=== PATIENT | female | born 1980 | race Caucasian/White ===

== ENCOUNTER 2017-01-21 16:07 | Inpatient (IN) ==
--- NOTE | 2017-01-21 16:35 | Emergency Department Note ---
Disposition Clinical Impression: Anemia Qualifiers: Anemia type: unspecified type Qualified Code(s): D64.9 - Anemia, unspecified Disposition: Admitted As Inpatient Condition: Good Forms: ED Satisfaction Letter General Adult HPI - General Chief complaint: ED Recheck/Abnormal Lab/Rx Stated complaint: needs blood transfusion Time Seen by Provider: 01/21/17 16:16 Source: patient Limitations: no limitations Nursing Notes Reviewed: Yes Vital Signs Reviewed: Yes - History of Present Illness HPI Narrative: Patient sent for evaluation after outpatient labs show hemoglobin of 3.8. Patient states that she has been having symptoms of fatigue and weakness and exertional dyspnea for months. Patient states she has had a 40 pound weight loss over the last 2 months. Patient went to follow up with her family practice provider and had outpatient tests ordered that showed low hemoglobin. Patient is not in any current distress. When she has exertional dyspnea she does have some chest pain that she describes as a pressure. Pain Scale: 0 - Related Data Home Medications Medication Instructions Recorded Confirmed Albuterol Sulfate [Proair Hfa] 2 puff IH Q4-6H PRN 02/10/16 01/21/17 Atorvastatin [Lipitor] 40 mg PO HS 12/27/16 01/21/17 Budesonide/Formoterol 160/4.5 2 puff IH BIDR 12/27/16 01/21/17 [Symbicort 160/4.5] DiphenhydraMINE [Benadryl] 25 mg PO Q4HR PRN 12/27/16 01/21/17 Lansoprazole [Prevacid] 30 mg PO DAILY 12/27/16 01/21/17 Tiotropium [Spiriva] 18 mcg IH 0700 12/27/16 01/21/17 Multivitamin with Iron 1 each PO DAILY 01/21/17 01/21/17 [Multivitamins with Iron] Venlafaxine HCl 100 mg DT BID 01/21/17 01/21/17 Previous Rx's Medication Instructions Recorded Cetirizine HCl [Zyrtec] 10 mg PO DAILY #14 tablet 10/05/16 Allergies Allergy/AdvReac Type Severity Reaction Status Date / Time No Known Allergies Allergy Verified 12/27/16 08:26 Review of Systems: CONSTITUTIONAL: Fatigue, weakness, weight loss No fever, chills, HEENT: Eyes: No visual changes. Ears, Nose, Throat: No hearing loss, difficulty talking or unable to swallow. SKIN: Pale No rash or itching. CARDIOVASCULAR: No chest pain, chest pressure or chest discomfort. No palpitations or edema. RESPIRATORY: No shortness of breath, cough or sputum. GASTROINTESTINAL: No anorexia, nausea, vomiting or diarrhea. No abdominal pain or blood. GENITOURINARY: No burning on urination or hematuria. NEUROLOGICAL:dizziness, near syncope, No headache, paralysis, ataxia, numbness or tingling in the extremities. No change in bowel or bladder control. MUSCULOSKELETAL: Weakness HEMATOLOGIC: No bleeding or bruising. LYMPHATICS: No enlarged lymphnodes. PSYCHIATRIC: No change to depression or anxiety. ENDOCRINOLOGIC: No reports of heat or cold intolerance, Polyuria ALLERGIES: No history of asthma, hives, eczema or rhinitis. Past Medical History - Past Medical History Medical history: Reports: asthma, COPD, GERD, hyperlipidemia Surgical history: Reports: hysterectomy, other Psychiatric history: Reports: anxiety, depression [employer] MANAGER history: Reports: bilateral tubal ligation - Social History Smoking Status: Current every day smoker Smokeless Tobacco Status: No Alcohol use: Reports: none Drug use: Reports: none Physical Exam General appearance: Pale, NAD, conversant Eyes: anicteric sclerae, pale conjunctivae; PERRL HENT: Atraumatic; oropharynx clear with moist mucous membranes and no mucosal ulcerations Neck: Normal inspection; Trachea midline; FROM, supple Lungs: CTA, with normal respiratory effort and no intercostal retractions CV: RRR, no MRGs Abdomen: Soft, non-tender; no rebound or gaurding Rectal exam with dark stool that is been sent for Hemoccult -presumed positive for upper GI bleed Extremities: No peripheral edema or extremity lymphadenopathy Skin: Pale;Normal temperature; no rash, ulcers or lesions Psych: Appropriate mood and affect Neuro: alert and oriented to person, place and time - General Limitations: no limitations General appearance: alert Course - Reevaluation(s) Reevaluation #1: 2 units of blood given. Hemoccult dark brown but negative for Hemoccult card. CT abdomen and pelvis negative for acute process. Patient will be admitted for further monitoring and workup. - Consultations Consultation #1: Discussed with the hospitalistGiancarlo. Patient accepted. Vital Signs Temperature 98.5 F 01/21/17 16:08 Pulse Rate 110 06/02/17 16:08 Respiratory Rate 18 01/21/17 16:08 Blood Pressure 150/82 01/21/17 16:08 O2 Sat by Pulse Oximetry 100 01/21/17 16:08 Temperature 99.0 F 01/21/17 18:33 Pulse Rate 83 01/21/17 18:33 Respiratory Rate 16 01/21/17 18:33 Blood Pressure 115/94 01/21/17 18:33 O2 Sat by Pulse Oximetry 100 01/21/17 17:31 Oxygen Delivery Oxygen Delivery Room Air Medical Decision Making - Lab Data Result diagrams: 01/21/17 16:25 01/21/17 16:25 Lab Results 01/21/17 01/21/17 01/21/17 Range/Units 16:25 16:25 16:25 WBC 5.8 (4.3-11.1) K/mcL RBC 2.64 L (3.82-4.97) M/mcL Hgb 4.0 L* (11.5-15.4) g/dL Hct 16.2 L (35.3-44.9) % MCV 61.4 L (83.0-100.0) fL MCH 15.2 L (28.0-33.3) pg MCHC 24.7 L (31.6-35.5) g/dL RDW 25.8 H (11.5-14.5) % Plt Count 360 (140-400) K/mcL MPV 9.5 (9.4-12.4) fL Immature Gran % 0.3 (0-4) % Seg Neutrophils % 59.8 % Lymphocytes % 31.4 % Monocytes % 6.9 % Eosinophils % 1.4 % Basophils % 0.2 % Neutrophils # 3.5 (1.6-8.9) K/mcL Lymphocytes # 1.8 (0.6-4.6) K/mcL Monocytes # 0.4 (0.0-1.3) K/mcL Eosinophils # 0.1 (0.0-0.6) K/mcL Basophils # 0.0 (0.0-0.2) K/mcL Hypochromasia Present A (Not Present) Anisocytosis 3+ A (Not Present) Microcytosis Present A (Not Present) PT (9.4-12.1) Seconds INR Sodium 138 (136-145) mEq/L Potassium 3.5 (3.5-4.5) mEq/L Chloride 108 (98-109) mEq/L Carbon Dioxide 23 (19-29) mEq/L BUN 10 (7-20) mg/dL Creatinine 0.77 (0.57-1.11) mg/dL Est GFR ( Amer) > 60 (> 60) Est GFR (Non-Af Amer) > 60 (> 60) BUN/Creatinine Ratio 13 (6-26) Glucose 100 H (70-99) mg/dL Calculated Osmolality 285 (280-300) Calcium 9.2 (8.6-10.8) mg/dL Phosphorus 2.4 (2.3-4.7) mg/dL Magnesium 2.1 (1.6-2.6) mg/dL Total Bilirubin 0.6 (0.2-1.2) mg/dL AST 10 (5-34) Units/L ALT < 6 (0-55) Units/L Alkaline Phosphatase 125 (38-126) Units/L Troponin I 0.01 (0-0.03) ng/mL Serum Total Protein 7.1 (6.0-8.3) g/dL Albumin 3.7 (3.5-5.0) g/dL Globulin 3.4 (2.4-3.5) g/dL Albumin/Globulin Ratio 1.1 (1.1-2.2) Urine Color (Yellow) Urine Clarity (Clear) Urine pH (5.0-8.0) pH Units Ur Specific [place] (1.010-1.025) Urine Protein (Neg-Trace) mg/dL Urine Glucose (UA) (Normal) mg/dL Urine Ketones (Negative) mg/dL Urine Blood (Negative) Urine Nitrite (Negative) Urine Bilirubin (Negative) Urine Urobilinogen (Normal) mg/dL Ur Leukocyte Esterase (Negative) Urine Microscopic RBC (0-3) per hpf Urine Microscopic WBC (0-3) per hpf Ur Squamous Epith Cells (None-Few) per lpf Urine Bacteria (None-Few) per hpf Hyaline Casts (None-Few) per lpf Ur Culture Indicated? (NO) Stool Occult Blood (Negative) Blood Type Antibody Screen Crossmatch 01/21/17 01/21/17 01/21/17 Range/Units 16:25 16:25 16:25 WBC (4.3-11.1) K/mcL RBC (3.82-4.97) M/mcL Hgb (11.5-15.4) g/dL Hct (35.3-44.9) % MCV (83.0-100.0) fL MCH (28.0-33.3) pg MCHC (31.6-35.5) g/dL RDW (11.5-14.5) % Plt Count (140-400) K/mcL MPV (9.4-12.4) fL Immature Gran % (0-4) % Seg Neutrophils % % Lymphocytes % % Monocytes % % Eosinophils % % Basophils % % Neutrophils # (1.6-8.9) K/mcL Lymphocytes # (0.6-4.6) K/mcL Monocytes # (0.0-1.3) K/mcL Eosinophils # (0.0-0.6) K/mcL Basophils # (0.0-0.2) K/mcL Hypochromasia (Not Present) Anisocytosis (Not Present) Microcytosis (Not Present) PT 12.5 H (9.4-12.1) Seconds INR 1.2 Sodium (136-145) mEq/L Potassium (3.5-4.5) mEq/L Chloride (98-109) mEq/L Carbon Dioxide (19-29) mEq/L BUN (7-20) mg/dL Creatinine (0.57-1.11) mg/dL Est GFR ( Amer) (> 60) Est GFR (Non-Af Amer) (> 60) BUN/Creatinine Ratio (6-26) Glucose (70-99) mg/dL Calculated Osmolality (280-300) Calcium (8.6-10.8) mg/dL Phosphorus (2.3-4.7) mg/dL Magnesium (1.6-2.6) mg/dL Total Bilirubin (0.2-1.2) mg/dL AST (5-34) Units/L ALT (0-55) Units/L Alkaline Phosphatase (38-126) Units/L Troponin I (0-0.03) ng/mL Serum Total Protein (6.0-8.3) g/dL Albumin (3.5-5.0) g/dL Globulin (2.4-3.5) g/dL Albumin/Globulin Ratio (1.1-2.2) Urine Color (Yellow) Urine Clarity (Clear) Urine pH (5.0-8.0) pH Units Ur Specific [place] (1.010-1.025) Urine Protein (Neg-Trace) mg/dL Urine Glucose (UA) (Normal) mg/dL Urine Ketones (Negative) mg/dL Urine Blood (Negative) Urine Nitrite (Negative) Urine Bilirubin (Negative) Urine Urobilinogen (Normal) mg/dL Ur Leukocyte Esterase (Negative) Urine Microscopic RBC (0-3) per hpf Urine Microscopic WBC (0-3) per hpf Ur Squamous Epith Cells (None-Few) per lpf Urine Bacteria (None-Few) per hpf Hyaline Casts (None-Few) per lpf Ur Culture Indicated? (NO) Stool Occult Blood Negative (Negative) Blood Type A NEGATIVE Antibody Screen NEGATIVE Crossmatch See Detail 01/21/17 Range/Units 17:23 WBC (4.3-11.1) K/mcL RBC (3.82-4.97) M/mcL Hgb (11.5-15.4) g/dL Hct (35.3-44.9) % MCV (83.0-100.0) fL MCH (28.0-33.3) pg MCHC (31.6-35.5) g/dL RDW (11.5-14.5) % Plt Count (140-400) K/mcL MPV (9.4-12.4) fL Immature Gran % (0-4) % Seg Neutrophils % % Lymphocytes % % Monocytes % % Eosinophils % % Basophils % % Neutrophils # (1.6-8.9) K/mcL Lymphocytes # (0.6-4.6) K/mcL Monocytes # (0.0-1.3) K/mcL Eosinophils # (0.0-0.6) K/mcL Basophils # (0.0-0.2) K/mcL Hypochromasia (Not Present) Anisocytosis (Not Present) Microcytosis (Not Present) PT (9.4-12.1) Seconds INR Sodium (136-145) mEq/L Potassium (3.5-4.5) mEq/L Chloride (98-109) mEq/L Carbon Dioxide (19-29) mEq/L BUN (7-20) mg/dL Creatinine (0.57-1.11) mg/dL Est GFR ( Amer) (> 60) Est GFR (Non-Af Amer) (> 60) BUN/Creatinine Ratio (6-26) Glucose (70-99) mg/dL Calculated Osmolality (280-300) Calcium (8.6-10.8) mg/dL Phosphorus (2.3-4.7) mg/dL Magnesium (1.6-2.6) mg/dL Total Bilirubin (0.2-1.2) mg/dL AST (5-34) Units/L ALT (0-55) Units/L Alkaline Phosphatase (38-126) Units/L Troponin I (0-0.03) ng/mL Serum Total Protein (6.0-8.3) g/dL Albumin (3.5-5.0) g/dL Globulin (2.4-3.5) g/dL Albumin/Globulin Ratio (1.1-2.2) Urine Color Yellow (Yellow) Urine Clarity Cloudy A (Clear) Urine pH 6.0 (5.0-8.0) pH Units Ur Specific [place] 1.020 (1.010-1.025) Urine Protein Negative (Neg-Trace) mg/dL Urine Glucose (UA) Normal (Normal) mg/dL Urine Ketones Negative (Negative) mg/dL Urine Blood Negative (Negative) Urine Nitrite Negative (Negative) Urine Bilirubin Negative (Negative) Urine Urobilinogen Normal (Normal) mg/dL Ur Leukocyte Esterase Negative (Negative) Urine Microscopic RBC 0-3 (0-3) per hpf Urine Microscopic WBC 3-5 H (0-3) per hpf Ur Squamous Epith Cells Many H (None-Few) per lpf Urine Bacteria Few (None-Few) per hpf Hyaline Casts None Seen (None-Few) per lpf Ur Culture Indicated? NO (NO) Stool Occult Blood (Negative) Blood Type Antibody Screen Crossmatch Attestation Statement - Attestation Attestation: I examined this patient and my medical decision-making was reviewed with the [employer] CONSULTANT/PA/Advanced Practice Nurse/Resident Physician. I agree with the documented findings, disposition and treatment plan as described except to the extent set forth below. Patient to ED with a low hemoglobin. Patient's been feeling weak and for primary care provider. He ordered outpatient labs showed a hemoglobin of 3. Sent for eval. Denies blood in her stool. She does have some lower abdominal tenderness. On exam shows awake and alert. Pale conjunctiva. Abdomen soft with some lower abdominal tenderness without guarding. Lungs clear. Plan. Type and cross. CT abdomen and pelvis. Admit. 35 minutes of critical care exclusive of separately billable procedures.
[2017-01-21] MEDS ORDERED: Pantoprazole 80 MG in 0.9 % Sodium Chloride 50 ML IVPB ONE (16:37)
[2017-01-21 16:42] LABS: Basophils % 0.2 %; Eosinophils # 0.1 K/mcL (0.0-0.6); Eosinophils % 1.4 %; Hematocrit 16.2 % (35.3-44.9); Immature Granulocytes % 0.3 % (0-4); Lymphocytes # 1.8 K/mcL (0.6-4.6); Lymphocytes % 31.4 %; Mean Corpuscular HGB Conc 24.7 g/dL (31.6-35.5); Mean Corpuscular Hemoglobin 15.2 pg (28.0-33.3); Mean Corpuscular Volume 61.4 fL (83.0-100.0); Mean Platelet Volume 9.5 fL (9.4-12.4); Monocytes # 0.4 K/mcL (0.0-1.3); Monocytes % 6.9 %; Neutrophils # 3.5 K/mcL (1.6-8.9); Platelet Count 360 K/mcL (140-400); Red Blood Count 2.64 M/mcL (3.82-4.97); Red Cell Distribution Width 25.8 % (11.5-14.5); Segmented Neutrophils % 59.8 %
[2017-01-21 16:56] LABS: INR 1.2; Prothrombin Time 12.5 Seconds (9.4-12.1)
[2017-01-21 16:58] LABS: Alanine Aminotransferase < 6 Units/L (0-55); Albumin 3.7 g/dL (3.5-5.0); Albumin/Globulin Ratio 1.1 (1.1-2.2); Alkaline Phosphatase 125 Units/L (38-126); Aspartate Amino Transferase 10 Units/L (5-34); BUN/Creatinine Ratio 13 (6-26); Bilirubin,Total 0.6 mg/dL (0.2-1.2); Blood Urea Nitrogen 10 mg/dL (7-20); Calcium 9.2 mg/dL (8.6-10.8); Carbon Dioxide 23 mEq/L (19-29); Chloride 108 mEq/L (98-109); Globulin 3.4 g/dL (2.4-3.5); Glucose 100 mg/dL (70-99); Magnesium 2.1 mg/dL (1.6-2.6); Osmolality,Calculated 285 (280-300); Phosphorous 2.4 mg/dL (2.3-4.7); Potassium 3.5 mEq/L (3.5-4.5); Sodium 138 mEq/L (136-145); Total Protein 7.1 g/dL (6.0-8.3); eGFR For African Americans > 60 (> 60); eGFR For Non-African Americans > 60 (> 60)
[2017-01-21 17:09] LABS: Anisocytosis 3+ (Not Present); Hypochromasia Present (Not Present); Microcytosis Present (Not Present)
[2017-01-21 17:45] LABS: Bilirubin,Urine Negative (Negative); Blood,Urine Negative (Negative); Clarity,Urine Cloudy (Clear); Color,Urine Yellow (Yellow); Glucose,Urine (UA) Normal (Normal); Ketones,Urine Negative (Negative); Leukocyte Esterase,Urine Negative (Negative); Nitrite,Urine Negative (Negative); Protein,Urine Negative (Neg-Trace); Urobilinogen,Urine Normal (Normal)
[2017-01-21 17:48] LABS: Bacteria,Urine Few per hpf (None-Few); Hyaline Casts,Urine None Seen per lpf (None-Few); RBC,Urine 0-3 per hpf (0-3); Squamous Epithelial Cell,Urine Many per lpf (None-Few)
[2017-01-21] MEDS ORDERED: 0.9 % Sodium Chloride 500 ML ONE (17:57)
[2017-01-21] MEDS ORDERED: Naloxone 0.4 MG/ML INJ IVP PRN (20:09)
[2017-01-21] MEDS ORDERED: Acetaminophen 325 MG TABLET PO PRN (20:09)
[2017-01-21] MEDS ORDERED: Ondansetron 4 MG/2 ML VIAL IVP PRN (20:09)
--- NOTE | 2017-01-21 20:22 | Internal Med History&Physical ---
Date of Encounter: 01/21/17 Time of Encounter: 20:18 Assessment and Plan (1) Anemia Current visit: Yes Status: Acute Patient presents with symptomatic anemia with hemoglobin of 4.0. Microcytic. No evidence of active bleeding, fecal occult negative. Patient is on iron supplementation. Check iron panel, B12, folate, haptoglobin, LDH, reticulocyte count. If initial testing does not reveal a cause for the patient's anemia she may need further workup for other causes of anemia including occult GI bleed, thalassemia. We will consult the appropriate specialist based on the results of initial workup. Qualifiers: Anemia type: unspecified type Qualified Code(s): D64.9 - Anemia, unspecified (2) Asthma with COPD Current visit: Yes Status: Acute Stable this time. No evidence of exacerbation. She does have some mild wheezing on exam. Continue aerosol treatments. (3) Depression Current visit: Yes Status: Acute Stable. Continue home medications. Qualifiers: Depression Type: major depressive disorder Major depression recurrence: single episode Active/Remission status: remission status unspecified Qualified Code(s): F32.9 - Major depressive disorder, single episode, unspecified (4) DVT prophylaxis Current visit: Yes Status: Acute EPCDs Internal Medicine - H&P: HPI Chief complaint: Weakness/Fatigue Admitted From: Emergency Dept Plans for Post Hospital Care: Home History of present illness: Ms. Cuadra is a 36 year old female with history of asthma/COPD and depression presents with weakness. Patient states that she has felt tired and weak over the last several months, and this gradually worsened. She also reports pressure in the center of her chest that is worse with exertion. Patient saw her primary care physician today for this and lab work was performed which revealed a hemoglobin of 3.9. Patient says she has never had anything like this before. Patient reports occasional dark stools that have been present since she started a multivitamin with iron supplementation. She denies any bleeding source including epistaxis, hemoptysis, hematemesis, hematochezia, hematuria. Patient reports hysterectomy 12 years ago and no longer has menstrual bleeding. She denies any trauma. She reports chills but denies fever. She denies any abdominal pain, nausea, vomiting, diarrhea, dysuria. Patient denies any family history of anemia. Patient reports that she has been told she has been anemic in the past and was started on iron at that time. Past Med Surg Social Fam HX - Past Medical History Medical history: asthma, COPD, GERD, hyperlipidemia Psychiatric history: anxiety, depression - Past Surgical History Surgical History: hysterectomy, other - Social History Smoking Status: Current every day smoker Smokeless Tobacco Status: No Alcohol use: none Drug use: none - Additional Family History Additional family history: Reports mother had an [place] in her 60s. Denies any family history of anemia. Internal Medicine - H&P: Meds Albuterol Sulfate [Proair Hfa] 2 puff IH Q4-6H PRN 02/10/16 [History] Cetirizine HCl [Zyrtec] 10 mg PO DAILY #14 tablet 10/05/16 [Rx] Atorvastatin [Lipitor] 40 mg PO HS 12/27/16 [History] Budesonide/Formoterol 160/4.5 [Symbicort 160/4.5] 2 puff IH BIDR 12/27/16 [ History] DiphenhydraMINE [Benadryl] 25 mg PO Q4HR PRN 12/27/16 [History] Lansoprazole [Prevacid] 30 mg PO DAILY 12/27/16 [History] Tiotropium [Spiriva] 18 mcg IH 0700 12/27/16 [History] Multivitamin with Iron [Multivitamins with Iron] 1 each PO DAILY 01/21/17 [ History] Venlafaxine HCl 100 mg DT BID 01/21/17 [History] Allergies No Known Allergies Allergy (Verified 12/27/16 08:26) All Systems PM: A 10-system review of systems was performed and is negative for pertinent findings except as documented above in the HPI. - Constitutional Constitutional: chills, lethargy, malaise, no fever(s) - EENT Eyes: no blurry vision, no change in vision Nose, mouth and throat: no bleeding gums, no epistaxis, no sinus pain, no sinus pressure, no sore throat - Cardiovascular Cardiovascular ROS IM: chest pain, dyspnea, lightheadedness, no irregular heart rhythm, no palpitations, no syncope - Respiratory Respiratory: no hemoptysis, no chest congestion, no excessive phlegm production , no change in phlegm color - Gastrointestinal Gastrointestinal: no abdominal pain, no change in bowel habits, no change in stool character, no diarrhea, no hematemesis, no hematochezia, no nausea, no vomiting - Genitourinary Genitourinary: no dysuria, no hematuria Menstruation: amenorrhea, post hysterectomy - Musculoskeletal Musculoskeletal ROS IM: no numbness, no tingling - Integumentary Integumentary IM: no erythema, no unusual bruising, no jaundice - Neurological Neurological ROS: dizziness, no confusion, no focal weakness, no frequent falls , no headache(s), no numbness, no tingling - Psychiatric Psychiatric: no anxiety, no depression - Endocrine Endocrine IM: no polydipsia, no polyuria - Hematologic/Lymphatic Hematologic/Lymphatic: no easy bleeding, no easy bruising - Allergic/Immunologic Allergic/Immunologic: no tongue swelling, no throat swelling - Constitutional Vitals: Temp Pulse Resp BP Pulse Ox 98.4 F 84 16 146/77 99 01/21/17 20:16 01/21/17 20:16 01/21/17 20:16 01/21/17 20:16 01/21/17 20:16 General appearance: Present: A&O X 3, pleasant, no acute distress Exam: Patient was sitting up in bed when I entered the room. - Head Head exam: Present: atraumatic, normal inspection, normocephalic - Eye Eye exam: Present: EOMI, PERRL Additional comments: Conjunctival pallor - ENT ENT exam: Present: mucous membranes moist - Neck Neck exam general surgery: Present: full ROM. Absent: tenderness - Respiratory Respiratory exam: Present: CTAB. Absent: rales, rhonchi, wheezes - Cardiovascular Cardiovascular exam: Present: RRR. Absent: gallop, rubs, systolic murmur - GI/Abdominal GI/Abdominal exam: Present: normal bowel sounds, soft. Absent: distended, tenderness - Extremities Exam Extremities exam: Present: warm. Absent: pedal edema, tenderness - Neurological Exam Neurological exam: Present: alert, CN II-XII intact, oriented X3, no focal deficits - Psychiatric Psychiatric exam: Present: normal affect, normal mood - Skin Skin exam: Present: dry, intact, pallor, warm. Absent: erythema, petechiae, rash Internal Med - H&P Results - Labs CBC & Chem 7: 01/21/17 16:25 01/21/17 16:25
[2017-01-21 20:42] LABS: Immature Reticulocyte % 42.8 % (11.0-38.0); Retculocyte # 0.02 M/mcL (0.05-0.10); Reticulocyte % 0.8 % (1.6-2.8)
[2017-01-21 21:13] LABS: % Iron Saturation 7 % (15-50); Iron 26 mcg/dL (50-170); Lactate Dehydrogenase 146 Units/L (159-327); Transferrin 284 mg/dL (180-382)
[2017-01-21 21:38] LABS: Ferritin 2 ng/ml (5-204)
[2017-01-21] MEDS ORDERED: 0.9 % Sodium Chloride Mini Bag 100 ML ONE (21:52)
[2017-01-21 21:58] LABS: Folate 11.4 ng/mL (7.0-31.4)
[2017-01-21] MEDS: Budesonide/Formoterol 160/4.5 MDI IH SCH (23:38)
[2017-01-22 06:19] LABS: Basophils % 0.1 %; Mean Corpuscular Hemoglobin 19.4 pg (28.0-33.3)
[2017-01-22 06:21] LABS: Eosinophils # 0.1 K/mcL (0.0-0.6); Eosinophils % 0.8 %; Hematocrit 22.3 % (35.3-44.9); Hemoglobin 6.3 g/dL (11.5-15.4); Immature Granulocytes % 0.4 % (0-4); Lymphocytes # 1.6 K/mcL (0.6-4.6); Lymphocytes % 20.4 %; Mean Corpuscular HGB Conc 28.3 g/dL (31.6-35.5); Mean Corpuscular Volume 68.6 fL (83.0-100.0); Mean Platelet Volume 9.8 fL (9.4-12.4); Monocytes # 0.5 K/mcL (0.0-1.3); Monocytes % 6.4 %; Neutrophils # 5.6 K/mcL (1.6-8.9); Nucleated Red Blood Cells 0.4 /100 WBC (0); Platelet Count 307 K/mcL (140-400); Red Blood Count 3.25 M/mcL (3.82-4.97); Red Cell Distribution Width 29.7 % (11.5-14.5); Segmented Neutrophils % 71.9 %
[2017-01-22 06:31] LABS: INR 1.1
[2017-01-22 06:34] LABS: Activated Partial Thrombo Time 27.5 Seconds (26.0-36.0); Albumin 3.4 g/dL (3.5-5.0); Albumin/Globulin Ratio 1.2 (1.1-2.2); Alkaline Phosphatase 106 Units/L (38-126); Aspartate Amino Transferase 10 Units/L (5-34); BUN/Creatinine Ratio 14 (6-26); Blood Urea Nitrogen 10 mg/dL (7-20); Calcium 8.6 mg/dL (8.6-10.8); Carbon Dioxide 22 mEq/L (19-29); Chloride 111 mEq/L (98-109); Globulin 2.8 g/dL (2.4-3.5); Glucose 92 mg/dL (70-99); Osmolality,Calculated 287 (280-300); Phosphorous 2.8 mg/dL (2.3-4.7); Potassium 3.9 mEq/L (3.5-4.5); Sodium 139 mEq/L (136-145); Total Protein 6.2 g/dL (6.0-8.3); eGFR For African Americans > 60 (> 60); eGFR For Non-African Americans > 60 (> 60)
[2017-01-22 06:37] LABS: Alanine Aminotransferase < 6 Units/L (0-55); Bilirubin,Total 1.6 mg/dL (0.2-1.2)
[2017-01-22 06:56] LABS: Thyroid Stimulating Hormone 2.656 mcIU/mL (0.350-4.840)
[2017-01-22] MEDS: Budesonide/Formoterol 160/4.5 MDI IH SCH ×2 (08:14→19:55)
[2017-01-22] MEDS: Tiotropium 18 MCG inhalation IH SCH (08:15)
[2017-01-22 08:34] LABS: Anisocytosis 1+ (Not Present); Hypochromasia Present (Not Present); Platelet Estimate Normal (Normal)
[2017-01-22 08:38] LABS: Microcytosis Present (Not Present)
[2017-01-22 08:39] LABS: Poikilocytosis 1+ (Not Present)
[2017-01-22 08:41] LABS: Large Platelets Present (Not Present)
[2017-01-22] MEDS ORDERED: LANSOPRAZOLE 30 MG PO SCH (09:00)
[2017-01-22] MEDS ORDERED: Furosemide 20 MG/2 ML VIAL IVP ONE ×2 (11:13→20:45)
--- NOTE | 2017-01-22 11:36 | Internal Med Progress Note ---
Date of Encounter: 01/22/17 Time of Encounter: 11:31 - Assessment and plan (1) Anemia Current Visit: Yes Status: Acute Assessment and plan: Microcytic anemia of uncertain etiology, could be a problem with red cell production/abnormal Hb chains. Iron profile shows low iron stores, continue ferrous sulfate supplementation. Serum vitamin B12 and folic acid within normal limits. Low reticulocyte count. No evidence of overt or occult bleeding. Recent EGD showed no evidence of bleed. Stool occult blood 1 negative, we will send another sample. Hematology consult. Received 2 units PRBC with improvement in hemoglobin to 6.3. We will transfuse 2 more units of PRBC along with 1 FFP. Qualifiers: Anemia type: unspecified type Qualified Code(s): D64.9 - Anemia, unspecified (2) Asthma with COPD Current Visit: Yes Status: Chronic Assessment and plan: Not noted to be in acute exacerbation. Continue when necessary bronchodilators and supplemental oxygen, inhaled corticosteroids. (3) Depression Current Visit: Yes Status: Chronic Qualifiers: Depression Type: unspecified Qualified Code(s): F32.9 - Major depressive disorder, single episode, unspecified (4) Tobacco abuse Current Visit: Yes Status: Chronic Assessment and plan: Smoking cessation counseling given, patient claims she has been trying to cut down. Nicotine transdermal patch as inpatient. - Subjective Interval history: Reports feeling much better. Improved chest pain, shortness of breath. No nausea , vomiting, abdominal pain. - Constitutional Vitals: Temp Pulse Resp BP Pulse Ox 98.7 F 89 18 148/78 98 01/22/17 10:34 01/22/17 10:34 01/22/17 10:34 01/22/17 10:34 01/22/17 10:34 General appearance: Present: A&O X 3, answers questions appropriately - Respiratory Respiratory exam: Present: CTAB. Absent: accessory muscle use, rales, rhonchi, wheezes - Cardiovascular Cardiovascular exam: Present: RRR, +S1, +S2. Absent: diastolic murmur, gallop, rubs, systolic murmur - GI/Abdominal GI/Abdominal exam: Present: normal bowel sounds, soft, no peritoneal signs. Absent: distended, tenderness - Extremities Exam Extremities exam: Present: full ROM, warm, radial pulses palpable and symetrical. Absent: calf tenderness, cyanotic, pedal edema Internal Medicine: Result - Labs CBC & Chem 7: 01/22/17 05:17 01/22/17 05:17 Labs: Short CBC 01/22/17 Range/Units 05:17 WBC 7.8 (4.3-11.1) K/mcL Hgb 6.3 L D (11.5-15.4) g/dL Hct 22.3 L (35.3-44.9) % Plt Count 307 (140-400) K/mcL Neutrophils # 5.6 (1.6-8.9) K/mcL BMP 01/22/17 05:17 Sodium 139 Potassium 3.9 Chloride 111 H Carbon Dioxide 22 BUN 10 Creatinine 0.73 Glucose 92 Calcium 8.6 Liver Function 01/22/17 Range/Units 05:17 Total Bilirubin 1.6 H D (0.2-1.2) mg/dL AST 10 (5-34) Units/L ALT < 6 (0-55) Units/L Alkaline Phosphatase 106 (38-126) Units/L Albumin 3.4 L (3.5-5.0) g/dL - ABG Interpretation ABG results: PT/INR, D-dimer PT 12.0 Seconds (9.4-12.1) 01/22/17 05:17 Consult Discharge Plan - Plan Referrals: Thomas Ballard DO [Primary Care Provider] -
[2017-01-22] MEDS ORDERED: 0.9 % Sodium Chloride Mini Bag 100 ML ONE ×2 (13:10→16:13)
--- NOTE | 2017-01-22 16:03 | Oncology Inp Consult Note ---
Date of Encounter: 01/22/17 Time of Encounter: 16:00 - Data of Consult Patient: new to practice Consult date: 01/22/17 Requesting Physician: Irene Lee MD Primary Care Provider: Thomas Ballard DO - Consult Narrative Reason for consult: Microcytic anemia History of present illness: Ms. Cuadra is a 36 year old female patient of Dr. Thomas Ballard hospitalized for symptomatic anemia like due to iron deficiency. She was found to have Hb 3.9 during evaluation of progressive fatigue,BASURTO and palpitation. Lab work is consistent with iron deficiency. She has no had any bleeding symptoms and UA negative for hematuria. She is s/p hysterectomy for benign indication and has no had any recent vaginal bleeding. EGD 12/27/[address] Fernandez showed benign appearing esophageal stenosis and large hiatal hernia. No recent colonoscopy. Since admission, she has received 3 untis PRBC and 1 unit FFP at time of eval. and is feeling much better. Not having any other physical complaints. CBC from a year ago was completely normal. She does not have ay significant personal or family Hx of hematology disoreder or malignancy No previous bowel surgeries. She is not any medications that can explain her abnormal CBC. She does not have any other risk factor her anemia and does not use alcohol, tobacco or recreational drugs. Dr. Lee was kind enough to discuss patient'd case with me regarding consult question. I reviewed her records for details of her ongoing care by the hospital team. She is a non smoker and does not use alcohol. Anemia work-up confirmed iron deficiency. B12 is in low normal range. folate normal. Abdomen/pelvis CT showed large hiatal hernia. Unremarkable otherwise. Rest of past medical, surgical, family, social history detailed below and verified with patient today. Review of systems: 12 point review of systems performed with patient and positive findings noted in history of present illness. All other systems are negative: Physical exam: Vital Signs Temp 98.5 F 01/22/17 13:23 Pulse 77 01/22/17 13:23 Resp 18 01/22/17 13:23 BP 113/72 01/22/17 13:23 Pulse Ox 95 01/22/17 13:23 Intake & Output 01/22/17 01/22/17 01/23/17 00:59 12:59 00:59 Intake Total 1200 / 1200 390 / 390 0 / 0 Output Total 150 / 150 1500 / 1500 Balance 1050 / 1050 -1110 / -1110 0 / 0 Weight 87.26 kg 86.954 kg Intake: IV Fluids 50 / 50 Protonix 80 MG In 0.9 % 50 / 50 Sodium Chloride 50 ML @ 600 mls/hr IVPB ONCE ONE Rx#:[id number] Oral 100 / 100 390 / 390 Blood Product 1050 / 1050 0 / 0 Plasma Unit 0 / 0 [id number] Rbcs Leuko Poor As-1 700 / 700 Unit [id number] Rbcs Leuko Poor As-3 2nd 350 / 350 Unit [id number] Output: Urine 150 / 150 1500 / 1500 Other: Meal Breakfast Percent of Meal Consumed 100% # Voids 1 1 # Bowel Movements 0 GENERAL: Alert and oriented, [default value] appearing. Mental Status: Affect appropriate for circumstances HEENT: Sclerae anicteric. No mucositis or thrush. No other oral or pharyngeal lesions or erythema. Skin: No rashes or petechiae. No evidence of skin malignancy Lymph nodes: No cervical, supraclavicular, axillary, or inguinal adenopathy. Lungs: Clear to auscultation bilaterally. Clear to percussion bilaterally. Cardiovascular: Regular rate and rhythm. No gallops, murmurs, or rubs. Abdomen: Soft, nontender; No organomegaly or masses palpable. Extremities: No edema. No calf swelling or tenderness. No joint deformity. Neurologic: Alert, normal gait; no focal weakness or sensory abnormalities. Results: Laboratory Last Values WBC 7.8 K/mcL (4.3-11.1) 01/22/17 05:17 RBC 3.25 M/mcL (3.82-4.97) L 01/22/17 05:17 Hgb 6.3 g/dL (11.5-15.4) L D 01/22/17 05:17 Hct 22.3 % (35.3-44.9) L 01/22/17 05:17 MCV 68.6 fL (83.0-100.0) L D 01/22/17 05:17 MCH 19.4 pg (28.0-33.3) L 01/22/17 05:17 MCHC 28.3 g/dL (31.6-35.5) L 01/22/17 05:17 RDW 29.7 % (11.5-14.5) H 01/22/17 05:17 Plt Count 307 K/mcL (140-400) 01/22/17 05:17 MPV 9.8 fL (9.4-12.4) 01/22/17 05:17 Reticulocyte # 0.02 M/mcL (0.05-0.10) L 01/21/17 20:26 Immature Gran % 0.4 % (0-4) 01/22/17 05:17 Seg Neutrophils % 71.9 % 01/22/17 05:17 Lymphocytes % 20.4 % 01/22/17 05:17 Monocytes % 6.4 % 01/22/17 05:17 Eosinophils % 0.8 % 01/22/17 05:17 Basophils % 0.1 % 01/22/17 05:17 Neutrophils # 5.6 K/mcL (1.6-8.9) 01/22/17 05:17 Lymphocytes # 1.6 K/mcL (0.6-4.6) 01/22/17 05:17 Monocytes # 0.5 K/mcL (0.0-1.3) 01/22/17 05:17 Eosinophils # 0.1 K/mcL (0.0-0.6) 01/22/17 05:17 Basophils # 0.0 K/mcL (0.0-0.2) 01/22/17 05:17 Nucleated RBCs/100 WBC 0.4 /100 WBC (0) H 01/22/17 05:17 Platelet Estimate Normal (Normal) 01/22/17 05:17 Large Platelets Present (Not Present) A 01/22/17 05:17 Hypochromasia Present (Not Present) A 01/22/17 05:17 Poikilocytosis 1+ (Not Present) A 01/22/17 05:17 Anisocytosis 1+ (Not Present) A 01/22/17 05:17 Microcytosis Present (Not Present) A 01/22/17 05:17 Percent Retic 0.8 % (1.6-2.8) L 01/21/17 20:26 Immature Retic Fraction 42.8 % (11.0-38.0) H 01/21/17 20:26 Retic Hgb Equivalent 15.5 pg (28.61-36.33) L 01/21/17 20:26 PT 12.0 Seconds (9.4-12.1) 01/22/17 05:17 INR 1.1 01/22/17 05:17 APTT 27.5 Seconds (26.0-36.0) 01/22/17 05:17 Sodium 139 mEq/L (136-145) 01/22/17 05:17 Potassium 3.9 mEq/L (3.5-4.5) 01/22/17 05:17 Chloride 111 mEq/L (98-109) H 01/22/17 05:17 Carbon Dioxide 22 mEq/L (19-29) 01/22/17 05:17 BUN 10 mg/dL (7-20) 01/22/17 05:17 Creatinine 0.73 mg/dL (0.57-1.11) 01/22/17 05:17 Est GFR ( Amer) > 60 (> 60) 01/22/17 05:17 Est GFR (Non-Af Amer) > 60 (> 60) 01/22/17 05:17 BUN/Creatinine Ratio 14 (6-26) 01/22/17 05:17 Glucose 92 mg/dL (70-99) 01/22/17 05:17 Calculated Osmolality 287 (280-300) 01/22/17 05:17 Calcium 8.6 mg/dL (8.6-10.8) 01/22/17 05:17 Phosphorus 2.8 mg/dL (2.3-4.7) 01/22/17 05:17 Magnesium 2.0 mg/dL (1.6-2.6) 01/22/17 05:17 Iron 26 mcg/dL (50-170) L 01/21/17 20:26 % Saturation 7 % (15-50) L 01/21/17 20:26 Transferrin 284 mg/dL (180-382) 01/21/17 20:26 Ferritin 2 ng/ml (5-204) L 01/21/17 20:26 Total Bilirubin 1.6 mg/dL (0.2-1.2) H D 01/22/17 05:17 AST 10 Units/L (5-34) 01/22/17 05:17 ALT < 6 Units/L (0-55) 01/22/17 05:17 Alkaline Phosphatase 106 Units/L (38-126) 01/22/17 05:17 Lactate Dehydrogenase 146 Units/L (159-327) L 01/21/17 20:26 Troponin I 0.01 ng/mL (0-0.03) 01/21/17 16:25 Serum Total Protein 6.2 g/dL (6.0-8.3) 01/22/17 05:17 Albumin 3.4 g/dL (3.5-5.0) L 01/22/17 05:17 Globulin 2.8 g/dL (2.4-3.5) 01/22/17 05: Albumin/Globulin Ratio 1.2 (1.1-2.2) 01/22/17 05: Vitamin B12 372 pg/mL (213-816) 01/21/17 20:26 Folate 11.4 ng/mL (7.0-31.4) 01/21/17 20:26 TSH 2.656 mcIU/mL (0.350-4.840) 01/22/17 05:17 Urine Color Yellow (Yellow) 01/21/17 17:23 Urine Clarity Cloudy (Clear) A 01/21/17 17: Urine pH 6.0 pH Units (5.0-8.0) 01/21/17 17: Ur Specific [place] 1.020 (1.010-1.025) 01/21/17 17:23 Urine Protein Negative mg/dL (Neg-Trace) 01/21/17 17:23 Urine Glucose (UA) Normal mg/dL (Normal) 01/21/17 17:23 Urine Ketones Negative mg/dL (Negative) 01/21/17 17:23 Urine Blood Negative (Negative) 01/21/17 17:23 Urine Nitrite Negative (Negative) 01/21/17 17:23 Urine Bilirubin Negative (Negative) 01/21/17 17:23 Urine Urobilinogen Normal mg/dL (Normal) 01/21/17 17:23 Ur Leukocyte Esterase Negative (Negative) 01/21/17 17:23 Urine Microscopic RBC 0-3 per hpf (0-3) 01/21/17 17:23 Urine Microscopic WBC 3-5 per hpf (0-3) H 01/21/17 17:23 Ur Squamous Epith Cells Many per lpf (None-Few) H 01/21/17 17:23 Urine Bacteria Few per hpf (None-Few) 01/21/17 17:23 Hyaline Casts None Seen per lpf (None-Few) 01/21/17 17:23 Ur Culture Indicated? NO (NO) 01/21/17 17:23 Stool Occult Blood Negative (Negative) 01/21/17 16:25 Blood Type A NEGATIVE 01/21/17 16:25 Antibody Screen NEGATIVE 01/21/17 16:25 Crossmatch See Detail 01/21/17 16:25 Radiographic studies: Abdomen/Pelvis CT 01/21/17 17:07 IMPRESSION: Large hiatal hernia. D/ / Isra Plata MD / Isra Plata MD Interpreting Provider: Isra Plata MD I personally reviewed and interpreted patient's most recent imaging studies dated 01/21/17. I discussed the findings with the patient today. Impression/recommendations: Unexplained, iron deficiency anemia: At todays visit, we discussed the diagnostic considerations for her anemia including hematinic deficiencies, hemolysis, chronic liver disease, chronic infection, chronic kidney disease, chronic blood loss, autoimmune/rheumatoid disorders, hypothyroidism, and primary hematologic disorder. Workup for anemia confirmed iron deficiency and low normal B12 levels. I agree with ongoing management including transfusion and will recommend to get her hemoglobin to value of 7 or greater to she becomes asymptomatic. She will also need iron supplementation possibly parenteral iron to facilitate bone marrow recovery. In the interim, we'll start oral iron supplement and if she is medically optimal for discharge in the coming days, we'll arrange for iron infusions as outpatient. She doesn't have any obvious bleeding sites to explain her iron deficiency anemia but may need further evaluation for possible occult blood loss. Abdominal imaging did not show any evidence of organomegaly or lymphadenopathy to suggest the primary hematolymphoid disorders but she has a large hiatal hernia in addition to esophageal stenosis and was noted on recent EGD. Unclear if this may be the basis for iron malabsorption. Other consideration will be celiac disease that was sensitive disease panel for further evaluation. Ultimately, she will need colonoscopy for further evaluation which can be arranged as an outpatient. We'll follow the patient along side you during this hospitalization but please do not hesitate to call regarding interval hematologic questions as they arise. Thank you for your excellent ongoing care for allowing us to see her while in- house. This report was created using voice recognition software and may contain errors. It was signed but not edited to expedite communication. Corrections will be made in a separate addendum as needed. Past Med Surg Social Fam HX - Past Medical History Medical history: asthma, COPD, GERD, hyperlipidemia Psychiatric history: anxiety, depression - Past Surgical History Surgical History: hysterectomy, other - Social History Smoking Status: Current every day smoker Packs per day: 1 Smokeless Tobacco Status: No Alcohol use: none Drug use: none - Family History Mother Name: Adela Cuadra Age: 62 Hx Family Cardiac Disorders: Yes (cardiomegaly) Hx Family Respiratory Disorders: Yes (copd) Hx Family Endocrine Disorder: Yes (DM) Medications and Allergies Albuterol Sulfate [Proair Hfa] 2 puff IH Q4-6H PRN 02/10/16 [History] Cetirizine HCl [Zyrtec] 10 mg PO DAILY #14 tablet 10/05/16 [Rx] Atorvastatin [Lipitor] 40 mg PO HS 12/27/16 [History] Budesonide/Formoterol 160/4.5 [Symbicort 160/4.5] 2 puff IH BIDR 12/27/16 [ History] DiphenhydraMINE [Benadryl] 25 mg PO Q4HR PRN 12/27/16 [History] Lansoprazole [Prevacid] 30 mg PO DAILY 12/27/16 [History] Tiotropium [Spiriva] 18 mcg IH 0700 12/27/16 [History] Multivitamin with Iron [Multivitamins with Iron] 1 each PO DAILY 01/21/17 [ History] Venlafaxine HCl 100 mg DT BID 01/21/17 [History] Allergies [place] And Derivatives Allergy (Verified 01/22/17 12:02) Blister Tomato Allergy (Verified 01/22/17 12:01) Blister patient report Oncology - Exam - Constitutional Vitals: Temp Pulse Resp BP Pulse Ox 98.5 F 77 18 113/72 95 01/22/17 13:23 01/22/17 13:23 01/22/17 13:23 01/22/17 13:23 01/22/17 13:23 Oncology - Results - Labs Labs: Short CBC 01/22/17 Range/Units 05:17 WBC 7.8 (4.3-11.1) K/mcL Hgb 6.3 L D (11.5-15.4) g/dL Hct 22.3 L (35.3-44.9) % Plt Count 307 (140-400) K/mcL Neutrophils # 5.6 (1.6-8.9) K/mcL BMP 01/22/17 05:17 Sodium 139 Potassium 3.9 Chloride 111 H Carbon Dioxide 22 BUN 10 Creatinine 0.73 Glucose 92 Calcium 8.6 Liver Function 01/22/17 Range/Units 05:17 Total Bilirubin 1.6 H D (0.2-1.2) mg/dL AST 10 (5-34) Units/L ALT < 6 (0-55) Units/L Alkaline Phosphatase 106 (38-126) Units/L Albumin 3.4 L (3.5-5.0) g/dL Consult Discharge Plan - Plan Additional Instructions: F/up with [facility] in 1-2 weeks Referrals: Thomas Ballard DO [Primary Care Provider] -
[2017-01-22] MEDS ORDERED: 0.9 % Sodium Chloride 250 ML ONE (21:45)
[2017-01-23 07:10] LABS: Basophils % 0.3 %; Eosinophils # 0.1 K/mcL (0.0-0.6); Eosinophils % 1.4 %; Hematocrit 29.3 % (35.3-44.9); Hemoglobin 8.8 g/dL (11.5-15.4); Immature Granulocytes % 0.8 % (0-4); Immature Platelets 5.7 % (1.1-6.1); Lymphocytes # 1.6 K/mcL (0.6-4.6); Lymphocytes % 21.2 %; Mean Corpuscular Hemoglobin 21.7 pg (28.0-33.3); Mean Corpuscular Volume 72.2 fL (83.0-100.0); Mean Platelet Volume 10.1 fL (9.4-12.4); Monocytes # 0.5 K/mcL (0.0-1.3); Monocytes % 7.4 %; Nucleated Red Blood Cells 0.4 /100 WBC (0); Platelet Count 319 K/mcL (140-400); Red Blood Count 4.06 M/mcL (3.82-4.97); Red Cell Distribution Width 28.1 % (11.5-14.5); Segmented Neutrophils % 68.9 %
[2017-01-23] MEDS: Budesonide/Formoterol 160/4.5 MDI IH SCH (07:51)
[2017-01-23] MEDS: Tiotropium 18 MCG inhalation IH SCH (07:51)
[2017-01-23 08:18] LABS: Anisocytosis 2+ (Not Present); Platelet Estimate Normal (Normal)
[2017-01-23 11:26] VITALS: BP 137/84
--- NOTE | 2017-01-23 11:42 | Discharge Summary ---
Date of Encounter: 01/23/17 Time of Encounter: 11:39 - Discharge Diagnosis (1) Anemia Priority: Primary Status: Acute Qualifiers: Anemia type: iron deficiency Iron deficiency anemia type: unspecified iron deficiency Qualified Code(s): D50.9 - Iron deficiency anemia, unspecified (2) Asthma with COPD Priority: Secondary Status: Chronic (3) Depression Priority: Secondary Status: Chronic Qualifiers: Depression Type: unspecified Qualified Code(s): F32.9 - Major depressive disorder, single episode, unspecified (4) Tobacco abuse Priority: Secondary Status: Chronic - Discharge Medications Home Medications: Albuterol Sulfate [Proair Hfa] 2 puff IH Q4-6H PRN 02/10/16 [History] Cetirizine HCl [Zyrtec] 10 mg PO DAILY #14 tablet 10/05/16 [Rx] Atorvastatin [Lipitor] 40 mg PO HS 12/27/16 [History] Budesonide/Formoterol 160/4.5 [Symbicort 160/4.5] 2 puff IH BIDR 12/27/16 [ History] DiphenhydraMINE [Benadryl] 25 mg PO Q4HR PRN 12/27/16 [History] Lansoprazole [Prevacid] 30 mg PO DAILY 12/27/16 [History] Tiotropium [Spiriva] 18 mcg IH 0700 12/27/16 [History] Multivitamin with Iron [Multivitamins with Iron] 1 each PO DAILY 01/21/17 [ History] Venlafaxine HCl 100 mg DT BID 01/21/17 [History] Allergies/Adverse Reactions: Allergies [place] And Derivatives Allergy (Verified 01/22/17 12:02) Blister Tomato Allergy (Verified 01/22/17 12:01) Blister patient report Date of admission: 01/22/17 04:46 Primary care physician: Thomas Ballard DO Consults: 01/22/17 11:07 Consult to Oncology Hematology [CONS] Routine Consulting Provider: Bryan Wahl Reason for Consult: Microcytic anemia Call Completed: Yes Discharging clinician: Irene Lee Anticipated date of discharge: 01/23/17 - Patient Status Disposition: Home, Self-Care Condition: Good Functional capacity at discharge: independent ambulation Overall status at discharge: patient is back to baseline - Discharge Instructions Follow Up With: Thomas Ballard DO [Primary Care Provider] - Forms: Work/School Release Additional Instructions: F/up with [facility] in 1-2 weeks - Diet and Activity Activity: resume usual activities as tolerated Diet: low salt diet Hospital course: Ms. Cuadra is a 36 year old female with history of iron deficiency was admitted with symptomatic anemia. Her CBC including hemoglobin with noted to be normal about 1 year back and hemoglobin at the time of this admission was noted to be 4. Patient has microcytic anemia; iron profile shows low iron stores along with very low ferritin and normal transferrin saturation. Reticulocyte count also is noted to be low. Patient received 4 units PRBC and 1 FFP during this admission with improvement in hemoglobin to 8.8 today. She has no evidence of overt blood loss and stool occult blood is negative. Hematology was consulted and recommend outpatient follow-up. Patient is currently medically stable for discharge. - Time Spent with Patient Total time spent providing and/or coordinating discharge services: Greater than 30 minutes (45 min) - Constitutional Vitals: Temp Pulse Resp BP Pulse Ox 98.2 F 87 18 137/84 95 01/23/17 11:20 01/23/17 11:20 01/23/17 11:20 01/23/17 11:20 01/23/17 11:20 General appearance: Present: A&O X 3, answers questions appropriately - Respiratory Respiratory exam: Present: CTAB. Absent: accessory muscle use, rales, rhonchi, wheezes - Cardiovascular Cardiovascular exam: Present: RRR, +S1, +S2. Absent: diastolic murmur, gallop, rubs, systolic murmur
--- NOTE | 2017-01-24 07:39 | Electrocardiograph Report ---
[address] [place] [address] Test Date: 2017-01-21 Pat Name: Pascale Cuadra Department: 104 Room: 3A42 Gender: F [employer]: : [id number] Requested By: Yemi Haas Order Number: [id number] Reading MD: Pawan Ponce MD Measurements Intervals [place] Rate: 95 P: 4 WV: 138 QRS: 8 QRSD: 83 T: 29 QT: 349 QTc: 402 Interpretive Statements SINUS RHYTHM Electronically Signed On 01-24-2017 7:37:52 EDT by Pawan Ponce MD
[2017-01-26 10:26] LABS: Tissue Transglutaminase IgA 1 U/mL (0-3)
[2017-01-26 10:30] LABS: Immunoglobulin A (CELIAC) 192 mg/dL (68-408)
== END 2017-01-23 12:04 | disposition home or self-care (01) | DRG 663 ==
LOC: 3ANU 16:07 → EMEROO 16:07 → 3ANU 21:20 → SUATTDRO 01-22 04:46
PROVIDERS: ADMIT Internal Medicine; ATTEND Internal Medicine